=== PATIENT | female | born 1980 | race Caucasian/White ===

== ENCOUNTER 2019-10-30 12:15 | Inpatient (IN) | payer OTHER ==
--- NOTE | 2019-10-30 14:13 | US ---
BPP w NST INDICATION: decreased fHT COMPARISON: None FINDINGS: Single live IUP in vertex position heart rate: 138 BPM. Biophysical profile score: 8/8. ERIKA: 10.02 cm. IMPRESSION: Normal biophysical profile score of 8/8.
[2019-10-30] MEDS ORDERED: Ondansetron 4 MG/2 ML SDV ONE (17:51)
[2019-10-30] MEDS ORDERED: Glycopyrrolate 0.2 MG/ML 5 ML MDV ONE (17:51)
[2019-10-30] MEDS ORDERED: Neostigmine Methylsulfate 1 MG/ML 5 ML Syringe ONE (17:51)
[2019-10-30] MEDS ORDERED: Rocuronium 50 MG/5 ML Vial ONE (17:51)
[2019-10-30] MEDS ORDERED: fentaNYL 250 MCG/5 ML SDV ONE (17:51)
[2019-10-30] MEDS ORDERED: Dexamethasone 4 MG/ML SDV ONE (17:51)
[2019-10-30] MEDS ORDERED: Propofol 200 MG/20 ML SDV ONE (17:51)
[2019-10-30] MEDS ORDERED: Succinylcholine 200 MG/10 ML MDV ONE (17:51)
[2019-10-30] MEDS ORDERED: Oxytocin 10 Units/1 ML SDV ONE ×2 (17:58→18:08)
[2019-10-30] MEDS ORDERED: cefOXitin 2 GM Vial ONE (17:58)
[2019-10-30] MEDS ORDERED: Midazolam 1 MG/ML 2 ML SDV ONE (18:01)
[2019-10-30] MEDS ORDERED: cefOXitin 1 GM Vial ONE (18:08)
[2019-10-30] MEDS ORDERED: fentaNYL 100 MCG/2 ML SDV ONE ×2 (18:17→19:04)
[2019-10-30] MEDS ORDERED: Sugammadex Sodium 200 MG/2 ML VIAL ONE (18:46)
[2019-10-30] MEDS ORDERED: HYDROmorphone/Normal Saline 15 MG/30 ML PCA IV PRN (18:51)
[2019-10-30] MEDS ORDERED: Sodium Chloride 0.9% 10 ML Syringe FLUSH PRN (18:57)
[2019-10-30] MEDS ORDERED: Naloxone 0.4 MG/ML SDV IV PRN (19:00)
[2019-10-30] MEDS ORDERED: hydrOXYzine HCL 100 MG/2 ML SDV IM ONE (19:02)
[2019-10-30] MEDS ORDERED: fentaNYL 100 MCG/2 ML SDV IVPUSH ONE (19:02)
--- NOTE | 2019-10-30 19:23 | PCM.LDHP ---
L&D History of Present Illness - General Date of Service: 10/30/19 Admit Problem/Dx: Patient Status Order with Admit Dx/Problem 10/30/19 17:00 Patient Status [ADT] Routine Admission Diagnosis/Problem Admission Diagnosis/Problem - Related Data Allergies/Adverse Reactions: Allergies Allergy/AdvReac Type Severity Reaction Status Date / Time sulfamethoxazole Allergy Cannot Verified 07/08/13 14:11 [From Bactrim] Remember trimethoprim [From Bactrim] Allergy Cannot Verified 07/08/13 14:11 Remember Home Medications: Home Meds Pnv No.95/Ferrous Fum/Folic AC [ Multivitamin Tablet] 1 each PO DAILY 10/30/19 [History] hydrOXYzine HCL [Atarax] 25 mg PO DAILY PRN 10/30/19 [History] Past Medical History HEENT History: Reports: None Musculoskeletal History: Reports: Fracture Other Musculoskeletal History: arm fracture as a child x2 Neurological History: Reports: Migraines - Infectious Disease History Infectious Disease History: Reports: Chicken Pox - Past Surgical History HEENT Surgical History: Reports: Oral Surgery, Other (See Below) Neurological Surgical History: Reports: None Musculoskeletal Surgical History: Reports: None Social & Family History - Family History Family Medical History: Noncontributory - Tobacco Use Smoking Status *Q: Former Smoker Years of Tobacco use: 10 Used Tobacco, but Quit: Yes Month/Year Tobacco Last Used: 2009 Second Hand Smoke Exposure: No - Caffeine Use Caffeine Use: Reports: Coffee - Recreational Drug Use Recreational Drug Use: No H&P Review of Systems - Review of Systems: Review Of Systems: See Below General: Reports: No Symptoms HEENT: Reports: No Symptoms Pulmonary: Reports: No Symptoms Cardiovascular: Reports: No Symptoms Gastrointestinal: Reports: No Symptoms Genitourinary: Reports: No Symptoms Musculoskeletal: Reports: No Symptoms Skin: Reports: No Symptoms Psychiatric: Reports: No Symptoms Neurological: Reports: No Symptoms Hematologic/Lymphatic: Reports: No Symptoms Immunologic: Reports: No Symptoms L&D Exam - Exam Exam: See Below - Vital Signs Vital Signs: Last Vital Signs Temp 37.3 C 10/30/19 16:30 Pulse 59 L 10/30/19 16:30 Resp 16 10/30/19 16:30 BP 127/66 10/30/19 16:30 Pulse Ox 99 10/30/19 16:30 Weight: 78.471 kg - OB Specific Contraction Duration (sec): 40-60 Contraction Frequency (min): 4-5 Contraction Intensity: Mild Movement: Active Heart Tones: Present Presentation: Vertex - Lauren Score Lauren Score Cervix Position: Anterior Lauren Score Consistency: Soft Lauren Score Effacement: 51-70% Lauren Score Dilation: 1-2 cm Lauren Score 's Station: -1 ,0 Lauren Score Total: 9 - Exam General: Alert, Oriented, Cooperative HEENT: PERRLA, Conjunctiva Clear, EACs Clear, EOMI, Hearing Intact, Mucosa Moist & Metolius, Nares Patent, Normal Nasal Septum, Posterior Pharynx Clear, Pupils Equal, Pupils Reactive, TMs Clear Neck: Supple, Trachea Midline Lungs: Clear to Auscultation, Normal Respiratory Effort Cardiovascular: Regular Rate, Regular Rhythm GI/Abdominal Exam: Normal Bowel Sounds, Soft, Non-Tender, No Organomegaly, No Distention, No Abnormal Bruit, No Mass, Pelvis Stable Rectal Exam: Normal Exam, Normal Rectal Tone Genitourinary: Normal external exam, Normal bimanual exam, Normal speculum exam Back Exam: Normal Inspection, Full Range of Motion Extremities: Normal Inspection, Normal Range of Motion, Non-Tender, No Pedal Edema, Normal Capillary Refill Skin: Warm, Dry, Intact Neurological: Cranial Nerves Intact, Reflexes Equal Bilateral Psychiatric: Alert, Normal Affect, Normal Mood - Problem List (1) SNOMED Code(s): 58868514 ICD Code: Z34.90 - ENCNTR FOR SUPRVSN OF NORMAL , UNSP, UNSP TRIMESTER Status: Acute Current Visit: Yes Qualifiers: Weeks of gestation: 39 weeks Qualified Code(s): Z3A.39 - 39 weeks gestation of (2) Variable heart rate decelerations, antepartum SNOMED Code(s): 449473634, 614359710 ICD Code: O36.8390 - MATERN CARE FOR ABNLT FETL HRT RATE OR RHYM, UNSP TRI, UNSP Status: Acute Current Visit: Yes (3) Encounter for induction of labor SNOMED Code(s): 817069838 ICD Code: Z34.90 - ENCNTR FOR SUPRVSN OF NORMAL , UNSP, UNSP TRIMESTER Status: Acute Current Visit: Yes Problem List Initiated/Reviewed/Updated: Yes Orders Last 24hrs: Active Orders 24 hr Category Date Time Status Patient Status [ADT] Routine ADT 10/30/19 17:00 Ordered Ambulate [RC] PER UNIT ROUTINE Care 10/30/19 18:57 Ordered Communication Order [RC] ASDIRECTED Care 10/30/19 18:57 Ordered Heart Tones [RC] PER UNIT ROUTINE Care 10/30/19 18:57 Ordered Non Stress Test [RC] Click to Edit Care 10/30/19 18:57 Ordered May Shower [RC] ASDIRECTED Care 10/30/19 18:57 Ordered Notify Provider Vital Signs [RC] PRN Care 10/30/19 17:00 Ordered Notify Provider [RC] PRN Care 10/30/19 18:57 Ordered OB Check [OM.PC] Click to Edit Care 10/30/19 12:17 Ordered Up ad Stacey [RC] ASDIRECTED Care 10/30/19 18:57 Ordered VTE/DVT Education [RC] Click to Edit Care 10/30/19 19:01 Ordered Vital Signs [RC] PER UNIT ROUTINE Care 10/30/19 18:57 Ordered HYDROmorphone/Normal Saline [Dilaudid PACKAGING ENGINEER 15 MG in NS Med 10/30/19 18:51 Active 30 ML] 0 mg IV ASDIRECTED PRN Naloxone [Narcan] Med 10/30/19 19:00 Active 0.1 mg IV ASDIRECTED PRN Sodium Chloride 0.9% [Saline Flush] Med 10/30/19 18:57 Ordered 10 ml FLUSH ASDIRECTED PRN DVT/VTE Prophylaxis Reflex [OM.PC] Routine Oth 10/30/19 18:57 Ordered Saline Lock Insert [OM.PC] Routine Oth 10/30/19 18:57 Ordered Resuscitation Status Routine Resus Stat 10/30/19 18:57 Ordered Medication Orders Hydromorphone HCl (Dilaudid Newborn Photographer 15 Mg In Ns 30 Ml) 0 mg IV ASDIRECTED PRN; Protocol PRN Reason: PACKAGING ENGINEER PAIN CONTROL Naloxone HCl (Narcan) 0.1 mg IV ASDIRECTED PRN PRN Reason: decreased respiratory rate Sodium Chloride (Saline Flush) 10 ml FLUSH ASDIRECTED PRN PRN Reason: Keep Vein Open Assessment/Plan Comment:: 10/30/2019 39 yo was seen in the clinic today and had a noted deceleration while assessing FHTs decision was made to have her evaluated further at the hospital. While at hospital she had a reactive NST, BPP 8/8, but with SVE had a noted amount of bloody show with cervical change, decision was made to monitor her for a time and if no SVE change and stable heart tones she would go home. During this watching time she had two more types of decelerations one equalling a late decel. Decision was made then that patient would stay, be admitted, and be augmented for labor. Patient verbalized understanding and agreed with plan of care Labs- O positive, HIV neg, Hep B neg, Hep C neg, RPR nonreactive, rubella immune, GBS positive SVE-2-/-1 FHTs-category one at this time Contractions every 3-6 minutes-mild to moderate at times Plan- Monitor continuous monitoring Monitor for active labor Plan to use cytotec vaginally to augment Patient may eat a regular diet Patient may be up ad stacey Patient may tub bath Will initiate PCN G per protocol for GBS positive If no labor or not active patient may have Ambien to sleep tonight If no labor by 10/31/2019 @ 0500 will SVE and initiate pitocin Plan and anticipate a vaginal delivery
[2019-10-30] MEDS: Dextrose 5%-Lactated Ringers 1,000 ML IV SCH (19:35)
[2019-10-30] MEDS ORDERED: diphenhydrAMINE 50 MG/ML SDV IVPUSH PRN (19:45)
[2019-10-30] MEDS ORDERED: ePHEDrine 50 MG/ML SDV IVPUSH PRN (19:45)
[2019-10-30] MEDS ORDERED: Naloxone 0.4 MG/ML SDV IVPUSH PRN (19:45)
--- NOTE | 2019-10-30 19:46 | PCM.PNLD ---
Labor Progress Note - VS & Meds Vital Signs: Last Vital Signs Temp 37.3 C 10/30/19 16:30 Pulse 59 L 10/30/19 16:30 Resp 16 10/30/19 16:30 BP 127/66 10/30/19 16:30 Pulse Ox 99 10/30/19 16:30 Active Medications: Current Medications Hydromorphone HCl (Dilaudid Customer Engagement Manager 15 Mg In Ns 30 Ml) 0 mg IV ASDIRECTED PRN; Protocol PRN Reason: GARAGE ATTENDANT PAIN CONTROL Naloxone HCl (Narcan) 0.1 mg IV ASDIRECTED PRN PRN Reason: decreased respiratory rate Sodium Chloride (Saline Flush) 10 ml FLUSH ASDIRECTED PRN PRN Reason: Keep Vein Open Discontinued Medications Cefoxitin Sodium (Mefoxin) Confirm Administered Dose 2 gm .ROUTE .STK-MED ONE Stop: 10/30/19 17:59 Cefoxitin Sodium (Mefoxin) Confirm Administered Dose 1 gm .ROUTE .STK-MED ONE Stop: 10/30/19 18:09 Dexamethasone (Dexamethasone) Confirm Administered Dose 4 mg .ROUTE .STK-MED ONE Stop: 10/30/19 17:52 Fentanyl (Sublimaze) Confirm Administered Dose 250 mcg .ROUTE .STK-MED ONE Stop: 10/30/19 17:52 Fentanyl (Sublimaze) Confirm Administered Dose 100 mcg .ROUTE .STK-MED ONE Stop: 10/30/19 18:18 Fentanyl (Sublimaze) 30 mcg IVPUSH ONETIME ONE Stop: 10/30/19 19:03 Fentanyl (Sublimaze) Confirm Administered Dose 100 mcg .ROUTE .STK-MED ONE Stop: 10/30/19 19:05 Glycopyrrolate (Robinul) Confirm Administered Dose 1 mg .ROUTE .STK-MED ONE Stop: 10/30/19 17:52 Hydroxyzine HCl (Vistaril) 100 mg IM ONETIME ONE Stop: 10/30/19 19:03 Last Admin: 10/30/19 19:09 Dose: 100 mg Documented by: Midazolam HCl (Versed 1 Mg/Ml) Confirm Administered Dose 2 mg .ROUTE .STK-MED ONE Stop: 10/30/19 18:02 Neostigmine Methylsulfate (Neostigmine) Confirm Administered Dose 5 mg .ROUTE .STK-MED ONE Stop: 10/30/19 17:52 Ondansetron HCl (Zofran) Confirm Administered Dose 4 mg .ROUTE .STK-MED ONE Stop: 10/30/19 17:52 Oxytocin (Pitocin) Confirm Administered Dose 20 unit .ROUTE .STK-MED ONE Stop: 10/30/19 17:59 Oxytocin (Pitocin) Confirm Administered Dose 10 unit .ROUTE .STK-MED ONE Stop: 10/30/19 18:09 Propofol (Diprivan 20 Ml) Confirm Administered Dose 200 mg .ROUTE .STK-MED ONE Stop: 10/30/19 17:52 Rocuronium Ebony (Zemuron) Confirm Administered Dose 50 mg .ROUTE .STK-MED ONE Stop: 10/30/19 17:52 Succinylcholine Chloride (Quelicin) Confirm Administered Dose 200 mg .ROUTE .STK-MED ONE Stop: 10/30/19 17:52 Sugammadex Sodium (Bridion) Confirm Administered Dose 200 mg .ROUTE .STK-MED ONE Stop: 10/30/19 18:47 - Uterine Contractions Uterine Monitoring Mode: External Udell Contraction Frequency (min): 4-5 Contraction Duration (sec): 40-60 Contraction Intensity: Mild Uterine Resting Tone: Soft - Monitoring Monitor Mode: External Ultrasound Heart Rate (FHR) Variability: Minimal (0-5 bpm) Accelerations: Prolonged Accelerations (>2x10 min) Strip Review: Category III - Vaginal Exam Dilation (cm): 2 Effacement (Percent): 80 Station: -1 Cervical Position: Anterior Sterile Vaginal Exam Performed By: Saray Gaines Vaginal Exam Comment: blood noted in vagina after provider removed hand. - Labor Progress (Free Text) Labor Progress: 10/30/2019 Patient was in process of being admitted when FHTs decelerated in a prolonged deceleration starting in the 50s. Mother's heart rate was confirmed with pulse ox, SVE was done and unchanged, FHTs continue in prolonged deceleration for two minutes, attempted O2 per nonrebreather, position change, and got IV fluids hung for bolus, FHTS did not improve staying in the 60s, decision was made to proceed to a STAT . Surgeon and Crew called, all staff came to assist after 8 minutes of a prolonged deceleration patient was brought downstairs in sidelying position on her labor bed, once in OR was dopplered FHTS and was now tachycardic 170's but no longer deceleration. Room was prepped and awaited for OR crew. Once crew was here, patient was put under with general anesthesia and infant was quickly manually removed, cord was left long, double clamped and cut by surgeon, was bulb suctioned and then brought to warmer for initial assessment. Dr. Perdue assisted, along with three labor and delivery nurses. was slow to cry and dusky in color, deep suction was done times two for 1ml of clear liquid, and CPAP was done for one minute, with blow by for approximately one minute after. began to pink in color and cry. APGARs-5/8, weight-5lbs 12.8oz, length-18.5 inches, father was with infant, since mother had general anesthesia decision was made to go to nursery with and father of infant. Baby was wrapped in two prewarmed blankets and hat placed on babies head. was carried by father of to nursery in stable condition and remains in nursery at this time.
[2019-10-30] MEDS ORDERED: hydrOXYzine HCL 100 MG/2 ML SDV IM PRN (19:57)
[2019-10-30] MEDS ORDERED: Ibuprofen 400 MG Tab PO SCH (20:00)
[2019-10-30] MEDS ORDERED: Ibuprofen 600 MG Tab PO SCH (20:00)
[2019-10-30] MEDS ORDERED: Acetaminophen 1,000 MG in Premix Bag 1 BAG IV ONE (20:00)
[2019-10-30] MEDS ORDERED: Ondansetron 4 MG/2 ML SDV IVPUSH PRN (20:04)
[2019-10-31] MEDS: cefOXitin 2 GM in Sodium Chloride 0.9% 50 ML IV SCH ×4 (00:13→18:21)
[2019-10-31] MEDS: Ibuprofen 400 MG Tab PO SCH ×4 (00:22→20:32)
[2019-10-31] MEDS: Dextrose 5%-Lactated Ringers 1,000 ML IV SCH (01:53)
[2019-10-31] MEDS: Acetaminophen 500 MG Tab PO SCH ×4 (01:54→20:32)
[2019-10-31] MEDS: Magnesium Sulfate/Water 2 GM in Premix Bag 1 BAG IV SCH ×3 (10:12→22:30)
[2019-10-31] MEDS: HYDROmorphone 2 MG Tab PO PRN ×3 (10:57→19:15)
--- NOTE | 2019-10-31 12:12 | PN ---
DATE OF SERVICE: 10/31/2019 SUBJECTIVE: Angy is postoperative day #1 following an emergency section. She states her pain is controlled with the LADLE LINER. Vital signs have been stable. REVIEW OF SYSTEMS: Remainder of review of systems negative for any pertinent positives and negatives. OBJECTIVE: GENERAL: Angy Goldstein is a pleasant 39-year-old female. Alert and orientated. VITAL SIGNS: TPR at 07:26, 98.9; 57; 18; blood pressure 113/64. HEENT: Negative. NECK: Supple. HEART: Regular rate and rhythm. LUNGS: Clear. ABDOMEN: Dressings dry and intact. Aquacel dressing in place with some shadowing. EXTREMITIES: Without peripheral edema. ASSESSMENT: Emergency with delivery of viable female . Date: 10/30/2019. PLAN: 1. Decrease IV to 100 mL per hour. 2. Regular diet. 3. Magnesium 2 g IV x4 doses. 4. Discontinue Torres. 5. Dilaudid 2 mg 1 to 2 every 4 hours p.r.n. pain if the patient desires to have LADLE LINER discontinued. 6. We will evaluate p.r.n. or in a.m. Courtney Chavira PA-C /[id number]
[2019-10-31] MEDS ORDERED: Lanolin 100% Cream 40 GM Tube TOP PRN (14:08)
[2019-11-01] MEDS: cefOXitin 2 GM in Sodium Chloride 0.9% 50 ML IV SCH ×3 (00:36→11:32)
[2019-11-01] MEDS: Ibuprofen 400 MG Tab PO SCH ×3 (03:05→17:38)
[2019-11-01] MEDS: Acetaminophen 500 MG Tab PO SCH ×4 (03:06→20:36)
[2019-11-01] MEDS: HYDROmorphone 2 MG Tab PO PRN ×5 (03:08→22:06)
[2019-11-01] MEDS: Magnesium Sulfate/Water 2 GM in Premix Bag 1 BAG IV SCH (03:10)
[2019-11-01] MEDS: Bisacodyl 5 MG Tab PO SCH ×2 (09:05→22:03)
[2019-11-01] MEDS: Docusate Sodium 100 MG Cap PO SCH ×2 (09:05→22:03)
--- NOTE | 2019-11-01 12:47 | PN ---
DATE OF SERVICE: 11/01/2019 SUBJECTIVE: Angy is postop day 2 following a section. States her pain is controlled with oral pain medication. She has been up ambulating. She is not passing any flatus. Afebrile. REVIEW OF SYSTEMS: Remainder of review of systems negative for any pertinent positives and negatives. OBJECTIVE: GENERAL: Angy Goldstein is a pleasant 39-year-old female. VITAL SIGNS: TPR at 0749, 98.3, 76, 16, blood pressure 125/67. HEENT: Negative. NECK: Supple. HEART: Regular rate and rhythm. LUNGS: Clear. ABDOMEN: Soft, minimally tender. Abdominal binder is on. Aquacel dressings on. EXTREMITIES: Without peripheral edema. ASSESSMENT: Emergency section delivery of viable female infant. Date 10/30/2019. Surgeon: Porter Ramos MD. PLAN: 1. Rx Colace 100 mg b.i.d. orally. 2. Dulcolax 2 tabs b.i.d. until the patient has a bowel movement. Plan to discharge in a.. Courtney Chavira PA-C /[id number]
[2019-11-02] MEDS: Ibuprofen 400 MG Tab PO SCH ×2 (00:20→05:17)
[2019-11-02] MEDS ORDERED: Simethicone 80 MG Tab.Chew PO ONE (02:51)
[2019-11-02] MEDS: Acetaminophen 500 MG Tab PO SCH ×2 (03:18→08:47)
[2019-11-02] MEDS: Docusate Sodium 100 MG Cap PO SCH (08:47)
[2019-11-02] MEDS: Bisacodyl 5 MG Tab PO SCH (08:47)
[2019-11-02 10:33] VITALS: BP 110/70; PULSE 72
--- NOTE | 2019-11-02 14:33 | DISCH ---
FINAL DIAGNOSIS: Term in labor with heart decelerations. OPERATIVE PROCEDURE: section. SUMMARY: This is a 39-year-old female who was admitted for induction of when she developed some heart decelerations. Given this, urgent section was undertaken. Both baby and mother appeared to be doing very well at this point. She will be discharged home on a regular diet. The medications on discharge will include Dilaudid 2 mg p.o. q.4 hours p.r.n. pain, #30; Tylenol 1 g p.o. q.i.d. p.r.n., ibuprofen 400 mg q.i.d. p.r.n., and she will be instructed to finish off her vitamins. She will be following up with Courtney Chavira at [facility] on 11/08/2019 at 9:30 a.m., and Saray Gaines, [facility] in about 2 weeks.
--- NOTE | 2019-11-02 14:39 | OR ---
DATE OF PROCEDURE: 10/30/2019 SURGEON: Porter Ramos MD PREOPERATIVE DIAGNOSIS: Term with onset of significant transient decelerations of heart tones. POSTOPERATIVE DIAGNOSIS: Term with onset of significant transient decelerations of heart tones. OPERATIVE PROCEDURE: section ([id number]). ANESTHESIA: General. MASTIC WORKER: Saray Gaines CNM. INDICATIONS FOR PROCEDURE: This is a 39-year-old presenting with term in labor. She developed significant transient decelerations and the decision was made to proceed with an urgent section. Potential risks of the procedure had been reviewed with the patient and she wished to proceed. DETAILS OF PROCEDURE: The patient was taken to the operating room. After the abdomen was prepped and draped, a Torres catheter was inserted. General anesthetic was induced. A midline incision from the umbilicus to the pubis was made and carried down through the full- thickness abdominal wall and into the peritoneal cavity. The peritoneal reflection of the bladder on the uterus was then divided and the bladder reflected downward. A transverse lower uterine segment incision was made and carried down through the full thickness of the uterus. A viable female was then delivered through a vertex presentation and routine care given off the field per Saray Gaines. The scores at 1 and 5 minutes were 5 and 8 respectively. The placenta was delivered without difficulty and the patient was given IV intrauterine oxytocin and IV cefoxitin. Good uterine contractions were noted and the uterus was then closed with 2 layers of 2-0 Vicryl stitch as was the peritoneal reflection of the bladder on the uterus. The midline peritoneum was then approximated with #2 Vicryl stitch. From the linea semilunaris downward and the anterior fascia was then closed with #2 Vicryl stitch as well, subcutaneous tissue was approximated with 2 layers of 3-0 and 4-0 Vicryl stitch deep and cash for the skin. Dressing was applied. The patient was taken to the recovery room in satisfactory condition. Per ACOG guidelines, the assistant printer floor covering was necessary for this procedure. Porter Ramos MD /[id number]
== END 2019-11-02 10:20 | disposition home or self-care (01) | DRG 788 ==
LOC: JP.OBCHECK 12:15 → JP.OB 17:21 → OBSVTOIN 18:06 → JP.MS 18:07
PROVIDERS: ADMIT Advanced Practice Midwife; ATTEND Surgery
PROC: 10D00Z1 Extraction of Products of Conception, Low, Open Approach (ICD-10-PCS; principal; 2019-10-30)
DX: O76 Abnormality in fetal heart rate and rhythm complicating labor and delivery (principal); O99.824 Streptococcus B carrier state complicating childbirth; Z88.2 Allergy status to sulfonamides; Z88.1 Allergy status to other antibiotic agents; Z79.899 Other long term (current) drug therapy; Z87.891 Personal history of nicotine dependence; Z3A.39 39 weeks gestation of pregnancy; Z37.0 Single live birth
CPT/HCPCS: 36415; 59409; 76818; 76818-26; 80053; 83735; 85025; 94762; 99211; A9270-GY; J0131; J0330; J0694; J1100; J1170; J2250; J2405; J2590; J2704; J2710; J3010; J3410; J3475; J3490; J7050; J7121